=== PATIENT | female | born 1940 | race Caucasian/White ===

== ENCOUNTER 2021-01-11 16:30 | Emergency (ER) | payer OTHER, MEDICARE ==
[~2021-01-11] VITALS: Ht 157.5 cm; Wt 50.0 kg
[2021-01-11 16:53] VITALS: TEMP 98.4
[2021-01-11 19:00] VITALS: BP 138/65; PULSE 71
== END 2021-01-11 19:00 | disposition home or self-care (01) ==
LOC: COL.ER 16:30
DX: S22.20XA Unspecified fracture of sternum, initial encounter for closed fracture (principal); E11.9 Type 2 diabetes mellitus without complications; I10 Essential (primary) hypertension; V43.52XA Car driver injured in collision with other type car in traffic accident, initial encounter